=== PATIENT | female | born 2000 | race Caucasian/White ===

== ENCOUNTER 2021-01-25 08:40 | Inpatient (IN) | payer BC ==
[~2021-01-25] VITALS: Ht 160 cm; Wt 76.2 kg
[2021-01-25 11:04] LABS: HEMOGLOBIN 14.3 gm/dl (12.3-15.3); RED BLOOD COUNT 4.68 M/UL (4.00-5.10); WHITE BLOOD COUNT 15.8 K/UL (4.5-11.0)
[2021-01-25] MEDS ORDERED: PRENATAL VITAM1 EAC6 PO (12:38)
[2021-01-26] MEDS ORDERED: DOCUSATE SODIU100 MG PO (10:36)
[2021-01-26] MEDS ORDERED: HYDROCODON-ACE1 EAC4 PO (10:36)
[2021-01-26] MEDS ORDERED: IBUPROFEN600 MG PO (10:36)
[2021-01-27 08:29] LABS: HEMOGLOBIN 11.5 gm/dl (12.3-15.3)
== END 2021-01-28 18:42 | disposition home or self-care (01) | DRG 807 ==
LOC: GENOP 08:40 → OB 10:46
PROVIDERS: Obstetrics & Gynecology; ADMIT Obstetrics & Gynecology
PROC: 10E0XZZ Delivery of Products of Conception, External Approach (ICD-10-PCS; principal; 2021-01-25)
PROC: 0KQM0ZZ Repair Perineum Muscle, Open Approach (ICD-10-PCS; 2021-01-25)
PROC: 4A1HXCZ Monitoring of Products of Conception, Cardiac Rate, External Approach (ICD-10-PCS; 2021-01-25)
PROC: 00HU33Z Insertion of Infusion Device into Spinal Canal, Percutaneous Approach (ICD-10-PCS; 2021-01-25)
PROC: 3E0R3BZ Introduction of Anesthetic Agent into Spinal Canal, Percutaneous Approach (ICD-10-PCS; 2021-01-25)
DX: O77.0 Labor and delivery complicated by meconium in amniotic fluid (principal); O70.1 Second degree perineal laceration during delivery; O99.824 Streptococcus B carrier state complicating childbirth; Z20.822 Contact with and (suspected) exposure to COVID-19; Z37.0 Single live birth; Z3A.39 39 weeks gestation of pregnancy
CPT/HCPCS: 36415; 51702; 82800; 83518; 85014; 85018; 85025; C9113; G0463; J0690; J2405; J2590; J2795; J3010; J7120; U0002